=== PATIENT | male | born 1985 | race Caucasian/White ===

== ENCOUNTER 2017-05-15 15:59 | Inpatient (IN) | payer OTHER ==
[2017-05-15 17:32] VITALS: BMI 22.1
--- NOTE | 2017-05-15 21:47 | HP ---
CIWA Score - CIWA Score Nausea/Vomitin-No Nausea/No Vomiting Muscle Tremors: 4-Moderate,w/Arms Extend Anxiety: 4-Mod. Anxious/Guarded Agitation: 4-Moderately Restless Paroxysmal Sweats: 1-Minimal Palms Moist Orientation: 1-Uncertain about Date Tacttile Disturbances: 3-Moderate Itch/Numb/Burn Auditory Disturbances: 0-None Visual Disturbances: 0-None Headache: 4-Moderately Severe CIWA-Ar Total Score: 21 Admission ROS S - HPI Chief Complaint: C/O OF WITHDRAWAL SX'S. SEEKING DETOX TXMENT Allergies/Adverse Reactions: Allergies Allergy/AdvReac Type Severity Reaction Status Date / Time Fish Containing Products Allergy Severe Difficulty Verified 05/15/17 20:18 Breathing No Known Drug Allergies Allergy Verified 11/05/15 17:31 History of Present Illness: 31 Y.O. MALE WITH POLYSUBSTANCE ABUSE SEEKING ADMISSION FOR BENZO AND ALCOHOL DEPENDENCE. HE IS ALSO ON MMTP FROM [facility]. LDM TODAY METHADONE 90 MG VERIFIED BY WEDNESDAY TAKE HOME BOTTLE. SELF REFERRED. REPORTS LONGEST CLEAN TIME 2 YEARS. RELAPSING 3 YEARS AGO. Exam Limitations: No Limitations - Ebola screening Have you traveled outside of the country in the last 21 days: No (N) Have you had contact with anyone from an Ebola affected area: No Have you been sick,other than usual withdrawal symptoms: No Do you have a fever: No - Review of Systems Constitutional: Chills, Loss of Appetite, Night Sweats, Changes in sleep EENT: reports: No Symptoms Reported Respiratory: reports: No Symptoms reported Cardiac: reports: No Symptoms Reported GI: reports: Nausea, Poor Appetite, Poor Fluid Intake : reports: No Symptoms Reported Musculoskeletal: reports: No Symptoms Reported Integumentary: reports: No Symptoms Reported Neuro: reports: Seizure (DUE TO XANAX WITHDRAWAL 6 MONTHS AGO LAST EPISODE) Endocrine: reports: No Symptoms Reported Hematology: reports: No Symptoms Reported Psychiatric: reports: Anxious, Depressed Other Systems: Reviewed and Negative Patient History - Patient Medical History Hx Anemia: No Hx Asthma: Yes (As a child) Hx Chronic Obstructive Pulmonary Disease (COPD): No Hx Cancer: No Hx Cardiac Disorders: No Hx Congestive Heart Failure: No Hx Hypertension: No Hx Hypercholesterolemia: No Hx Pacemaker: No HX Cerebrovascular Accident: No Hx Seizures: Yes (withdrawal related seizure last episode 06/2015) Hx Dementia: No Hx Diabetes: No Hx Gastrointestinal Disorders: Yes (gerd) Hx Liver Disease: No Hx Genitourinary Disorders: No Hx Sexually Transmitted Disorders: No Hx Renal Disease (ESRD): No Hx Thyroid Disease: No Hx Human Immunodeficiency Virus (HIV): No Hx Hepatitis C: No Hx Depression: Yes (anxiety) Hx Suicide Attempt: No Hx Bipolar Disorder: No Hx Schizophrenia: No Other Medical History: DENIES - Patient Surgical History Past Surgical History: No Hx Neurologic Surgery: No Hx Cataract Extraction: No Hx Cardiac Surgery: No Hx Lung Surgery: No Hx Breast Surgery: No Hx Breast Biopsy: No Hx Abdominal Surgery: No Hx Appendectomy: No Hx Cholecystectomy: No Hx Genitourinary Surgery: No Hx Section: No Hx Orthopedic Surgery: No Anesthesia Reaction: No - PPD History Previous Implant?: Yes Documented Results: Negative w/o proof Implanted On Prior R Admission?: No Date: 11/07/15 PPD to be Administered?: Yes - Smoking Cessation Smoking history: Current every day smoker Have you smoked in the past 12 months: Yes Aproximately how many cigarettes per day: 20 Cigars Per Day: 0 Hx Chewing Tobacco Use: No Initiated information on smoking cessation: Yes 'Breaking Loose' booklet given: 05/15/17 - Substance & Tx. History Hx Alcohol Use: Yes Hx Substance Use: Yes Substance Use Type: Alcohol, Cocaine, Prescribed (METHADONE), Tranquilizers - Substances Abused Alprazolam (Xanax) Route: Oral Frequency: Daily Amount used: 2/15 PILLS Age of first use: 28 Date of Last Use: 05/15/17 Alcohol Route: Oral Frequency: Daily Amount used: 324OZ ALCOHOL Age of first use: 26 Date of Last Use: 05/15/17 Cocaine Route: Injection Frequency: Daily Amount used: $100 Age of first use: 30 Date of Last Use: 05/14/17 Marijuana/Hashish Route: Smoking Frequency: 1-3 times last 30 days Amount used: 3BLUNTS Age of first use: 12 Date of Last Use: 04/29/17 Family Disease History - Family Disease History Family History: Denies Admission Physical Exam BHS - Vital Signs Vital Signs: Vital Signs - 24 hr 05/15/17 17:29 Temperature 98.3 F Pulse Rate 77 Respiratory 18 Rate Blood Pressure 103/68 - Physical General Appearance: Yes: Appropriately Dressed, Mild Distress, Tremorous, Anxious HEENTM: Yes: EOMI, Normocephalic, BRITTNY, Pharynx Normal Respiratory: Yes: Chest Non-Tender, Lungs Clear, Normal Breath Sounds, No Respiratory Distress, No Accessory Muscle Use Neck: Yes: No masses,lesions,Nodules, Supple, Trachea in good position Breast: Yes: Breast Exam Deferred Cardiology: Yes: Regular Rhythm, Regular Rate, S1, S2 Abdominal: Yes: Normal Bowel Sounds, Non Tender, Flat, Soft Genitourinary: Yes: Within Normal Limits Back: Yes: Normal Inspection Musculoskeletal: Yes: full range of Motion, Gait Steady Extremities: Yes: Normal Capillary Refill, Normal Range of Motion, Non-Tender, Tremors Neurological: Yes: web site designer II-XII NML intact, Fully Oriented, Alert, Motor Strength 5/5 Integumentary: Yes: Track Abbott (RIGHT NECK) Lymphatic: Yes: Within Normal Limits - Diagnostic (1) Sedative, hypnotic or anxiolytic dependence with withdrawal, uncomplicated Current Visit: Yes Status: Chronic (2) Cannabis dependence, uncomplicated Current Visit: Yes Status: Chronic (3) Cocaine dependence, uncomplicated Current Visit: Yes Status: Chronic (4) Methadone maintenance therapy patient Current Visit: Yes Status: Chronic (5) Asthma Current Visit: Yes Status: Chronic Qualifiers: Asthma severity: mild Asthma persistence: intermittent Asthma complication type: unspecified Qualified Code(s): J45.20 - Mild intermittent asthma, uncomplicated (6) Seizure Current Visit: Yes Status: Chronic (7) 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 Current Visit: Yes Status: Chronic (8) Alcohol dependence with withdrawal Current Visit: No Status: Chronic Qualifiers: Complication of substance-induced condition: uncomplicated Qualified Code(s ): F10.230 - Alcohol dependence with withdrawal, uncomplicated (9) GERD (gastroesophageal reflux disease) Current Visit: No Status: Chronic Qualifiers: Esophagitis presence: without esophagitis Qualified Code(s): K21.9 - Gastro -esophageal reflux disease without esophagitis Cleared for Admission S - Detox or Rehab [facility] Level of Care: Medically Managed Detox Regimen/Protocol: Valium Claeared for Rehab Admission: No S Breath Alcohol Content Breath Alcohol Content: 0 Urine Drug Screen - Results Drug Screen Negative: No Urine Drug Screen Results: THC-Marijuana, GREGG-Cocaine, BZO-Benzodiazepines, MTD- Methadone, TCA-Tricyclic Antidepress
[2017-05-15] MEDS ORDERED: MENTHOL/PHENOL 1 EACH UD MM PRN (22:04)
[2017-05-15] MEDS ORDERED: diazePAM 5 MG TABLET PO ONE (22:04)
[2017-05-15] MEDS ORDERED: P-EPHED 60MG/TRIPROLIDI 2.5MG TABLET PO PRN (22:04)
[2017-05-15] MEDS ORDERED: MAGNESIUM CITRATE 300 ML BOTTLE PO PRN (22:04)
[2017-05-15] MEDS ORDERED: MAG HYDROX/AL HYDROX/SIMETH 30 ML UNIT-DOSE CUP PO PRN (22:04)
[2017-05-15] MEDS ORDERED: guaiFENesin/D-METHORPHAN HB 10 ML UNIT-DOSE CUPS PO PRN (22:04)
[2017-05-15] MEDS ORDERED: MAGNESIUM HYDROX 2400MG/30ML ORAL SUSPENSION 30 ML CUP PO PRN (22:04)
[2017-05-15] MEDS ORDERED: LOPERAMIDE HCL 2 MG CAPSULE PO PRN (22:04)
[2017-05-15] MEDS ORDERED: NICOTINE POLACRILEX 4 MG GUM BC PRN (22:04)
[2017-05-15] MEDS ORDERED: IBUPROFEN 400 MG TABLET (FP) PO PRN (22:04)
[2017-05-15] MEDS ORDERED: ACETAMINOPHEN 325 MG TABLET (FP) PO PRN (22:04)
[2017-05-15] MEDS ORDERED: ALBUTEROL SO4 2.5/IPRATROPIUM 0.5 INH SOL 3 ML VIAL.NEB. NEB PRN (22:56)
[2017-05-15] MEDS: diazePAM 5 MG TABLET PO SCH (23:39)
[2017-05-16 00:12] LABS: URINE APPEARANCE CLEAR; URINE BILIRUBIN NEGATIVE (NEGATIVE); URINE BLOOD NEGATIVE (NEGATIVE); URINE COLOR DKYELLOW; URINE GLUCOSE (UA) NEGATIVE (NEGATIVE); URINE KETONE NEGATIVE (NEGATIVE); URINE LEUK ESTERASE NEGATIVE (NEGATIVE); URINE NITRITE NEGATIVE (NEGATIVE); URINE PROTEIN NEGATIVE (NEGATIVE)
[2017-05-16] MEDS ORDERED: DOCUSATE SODIUM 100 MG CAPSULE (FP) PO ONE (01:30)
[2017-05-16] MEDS: hydrOXYzine PAMOATE 50 MG CAPSULE (FP) PO PRN (02:29)
[2017-05-16] MEDS ORDERED: METHADONE HCL 10 MG TABLET ONE (04:46)
[2017-05-16] MEDS ORDERED: METHADONE HCL 40 MG DISPERSABLE TABLET ONE (04:47)
[2017-05-16] MEDS ORDERED: METHADONE HCL 10 MG TABLET PO SCH (06:00)
[2017-05-16] MEDS: diazePAM 5 MG TABLET PO SCH ×3 (06:56→22:28)
[2017-05-16] MEDS: METHADONE 80 MG, METHADONE 10 MG PO SCH (06:56)
[2017-05-16 11:00] LABS: HEMATOCRIT 36.1 % (35.4-49); HEMOGLOBIN 11.7 GM/dL (11.7-16.9); MCH 28.8 pg (25.7-33.7); MCHC 32.5 g/dl (32.0-35.9); MEAN CELL VOLUME 88.6 fl (80-96); MEAN PLT VOLUME 8.9 fl (7.5-11.1); PLATELET COUNT 239 K/MM3 (134-434); RBC 4.08 M/mm3 (4.00-5.60); RDW 13.7 % (11.9-15.9); WHITE BLOOD COUNT 6.4 K/mm3 (4.0-10.0)
[2017-05-16 11:08] LABS: ALBUMIN 3.8 g/dl (3.4-5.0); ANION GAP 4 (8-16); BLOOD UREA NITROGEN 18 mg/dL (7-18); CHLORIDE 103 mmol/L (98-107); CO2 34 mmol/L (21-32); GLUCOSE,RANDOM 78 mg/dL (74-106); POTASSIUM 3.6 mmol/L (3.5-5.1); SGOT/AST 52 U/L (15-37); SGPT/ALT 65 U/L (12-78); SODIUM 141 mmol/L (136-145)
[2017-05-16 11:10] LABS: ALK PHOS 123 U/L (45-117); BILIRUBIN,TOTAL 0.6 mg/dL (0.2-1.0); TOT PROT 6.7 g/dl (6.4-8.2)
--- NOTE | 2017-05-16 11:13 | EKG ---
Test Reason : Blood Pressure : / mmHG Vent. Rate : 080 BPM Atrial Rate : 080 BPM P-R Int : 150 ms QRS Dur : 082 ms QT Int : 360 ms P-R-T Axes : 050 044 037 degrees QTc Int : 415 ms NORMAL SINUS RHYTHM NONSPECIFIC T WAVE ABNORMALITY ABNORMAL ECG NO PREVIOUS ECGS AVAILABLE Confirmed by DARNELL BERNARD MD ([id number]) on 05/16/2017 11:13:29 AM Referred By: Confirmed By:DARNELL BERNARD MD
[2017-05-16] MEDS: diazePAM 5 MG TABLET PO PRN (11:15)
[2017-05-16] MEDS: PRENATAL VITAMINS W/ FOLIC ACID TABLET (FP) PO SCH (11:15)
[2017-05-16] MEDS: NICOTINE 21 MG/24 HOURS TOPICAL PATCH TD SCH (11:16)
--- NOTE | 2017-05-16 12:13 | PN ---
S CIWA - CIWA Score Nausea/Vomitin Muscle Tremors: 3 Anxiety: 3 Agitation: 2 Paroxysmal Sweats: 1-Minimal Palms Moist Orientation: 0-Oriented Tacttile Disturbances: 1-Very Mild Itch/Numbness Auditory Disturbances: 1-Very Mild Visual Disturbances: 0-None Headache: 2-Mild CIWA-Ar Total Score: 16 BHS Progress Note (SOAP) Subjective: ALERT,IRRITABLE,ANXIOUS,INTERRUPTED SLEEP,TREMOR,PAIN IN THE BODY Objective: 05/16/17 12:11 Vital Signs Temperature 97.1 F L 05/16/17 09:06 Pulse Rate 59 L 05/16/17 09:06 Respiratory Rate 18 05/16/17 09:06 Blood Pressure 101/68 05/16/17 09:06 O2 Sat by Pulse Oximetry (%) EKG NSR,NON SPECIFIC T WAVE NO CHEST PAIN,NO SOB,NO DIZZINESS Laboratory Last Values WBC 6.4 K/mm3 (4.0-10.0) 05/16/17 08:00 RBC 4.08 M/mm3 (4.00-5.60) 05/16/17 08:00 Hgb 11.7 GM/dL (11.7-16.9) 05/16/17 08:00 Hct 36.1 % (35.4-49) 05/16/17 08:00 MCV 88.6 fl (80-96) 05/16/17 08:00 MCH 28.8 pg (25.7-33.7) 05/16/17 08:00 MCHC 32.5 g/dl (32.0-35.9) 05/16/17 08:00 RDW 13.7 % (11.9-15.9) 05/16/17 08:00 Plt Count 239 K/MM3 (134-434) D 05/16/17 08:00 MPV 8.9 fl (7.5-11.1) 05/16/17 08:00 Sodium 141 mmol/L (136-145) 05/16/17 08:00 Potassium 3.6 mmol/L (3.5-5.1) 05/16/17 08:00 Chloride 103 mmol/L (98-107) 05/16/17 08:00 Carbon Dioxide 34 mmol/L (21-32) H D 05/16/17 08:00 Anion Gap 4 (8-16) L 05/16/17 08:00 BUN 18 mg/dL (7-18) 05/16/17 08:00 Creatinine 1.0 mg/dL (0.7-1.3) 05/16/17 08:00 Creat Clearance w eGFR > 60 (>60) 05/16/17 08:00 Random Glucose 78 mg/dL (74-106) 05/16/17 08:00 Calcium 8.0 mg/dL (8.5-10.1) L 05/16/17 08:00 Total Bilirubin 0.6 mg/dL (0.2-1.0) 05/16/17 08:00 AST 52 U/L (15-37) H D 05/16/17 08:00 ALT 65 U/L (12-78) D 05/16/17 08:00 Alkaline Phosphatase 123 U/L (45-117) H 05/16/17 08:00 Total Protein 6.7 g/dl (6.4-8.2) 05/16/17 08:00 Albumin 3.8 g/dl (3.4-5.0) 05/16/17 08:00 Urine Color Dkyellow 05/15/17 00:00 Urine Appearance Clear 05/15/17 00:00 Urine pH 5.0 (5.0-8.0) 05/15/17 00:00 Ur Specific [place] 1.026 (1.001-1.035) 05/15/17 00:00 Urine Protein Negative (NEGATIVE) 05/15/17 00:00 Urine Glucose (UA) Negative (NEGATIVE) 05/15/17 00:00 Urine Ketones Negative (NEGATIVE) 05/15/17 00:00 Urine Blood Negative (NEGATIVE) 05/15/17 00:00 Urine Nitrite Negative (NEGATIVE) 05/15/17 00:00 Urine Bilirubin Negative (NEGATIVE) 05/15/17 00:00 Urine Urobilinogen 2.0 mg/dL (0.2-1.0) 05/15/17 00:00 Ur Leukocyte Esterase Negative (NEGATIVE) 05/15/17 00:00 05/16/17 12:12 LABS PENDING Assessment: 05/16/17 12:13 WITHDRAWAL SYMPTOM Plan: CONTINUE DETOX
--- NOTE | 2017-05-16 13:18 | PN ---
[facility] Progress Note Note: Patient found sleeping in bed. Requested to be seen tomorrow citing being tired and needing to sleep. When asked to make an effort to see speech writer now so medications he needed could be ordered today, he said that he is fine
[2017-05-16] MEDS: THIAMINE HCL 100 MG TABLET (FP) PO SCH (22:28)
[2017-05-16] MEDS: DOCUSATE SODIUM 100 MG CAPSULE (FP) PO SCH (22:28)
[2017-05-17] MEDS ORDERED: METHADONE HCL 10 MG TABLET ONE (04:45)
[2017-05-17] MEDS ORDERED: METHADONE HCL 40 MG DISPERSABLE TABLET ONE (04:46)
[2017-05-17] MEDS: METHADONE 80 MG, METHADONE 10 MG PO SCH (05:03)
[2017-05-17] MEDS: diazePAM 5 MG TABLET PO PRN (08:23)
[2017-05-17] MEDS: NICOTINE 21 MG/24 HOURS TOPICAL PATCH TD SCH (10:39)
[2017-05-17] MEDS: PRENATAL VITAMINS W/ FOLIC ACID TABLET (FP) PO SCH (10:40)
[2017-05-17] MEDS: diazePAM 5 MG TABLET PO SCH ×2 (10:41→22:52)
--- NOTE | 2017-05-17 14:19 | PN ---
S CIWA - CIWA Score Nausea/Vomitin Muscle Tremors: 3 Anxiety: 4-Mod. Anxious/Guarded Agitation: 3 Paroxysmal Sweats: 3 Orientation: 2-Disoriented Date<2 days Tacttile Disturbances: 0-None Auditory Disturbances: 0-None Visual Disturbances: 0-None Headache: 0-None Present CIWA-Ar Total Score: 18 BHS Progress Note (SOAP) Subjective: Nausea, Anxious, Fatigue, Stomach Cramping, Sweating. Objective: PT. A & O X 2 (UNCERTAIN ABOUT CURRENT DAY /DATE). PT. OBSERVED AMBULATING ON UNIT. NO ACUTE DISTRESS. 05/17/17 14:16 Vital Signs Temperature 97.1 F L 05/17/17 06:00 Pulse Rate 96 H 05/17/17 06:00 Respiratory Rate 18 05/17/17 06:00 Blood Pressure 102/68 05/17/17 06:00 O2 Sat by Pulse Oximetry (%) Laboratory Tests 05/15/17 05/16/17 05/16/17 00:00 08:00 08:00 WBC 6.4 RBC 4.08 Hgb 11.7 Hct 36.1 MCV 88.6 MCH 28.8 MCHC 32.5 RDW 13.7 Plt Count 239 D MPV 8.9 Sodium Potassium Chloride Carbon Dioxide Anion Gap BUN Creatinine Creat Clearance w eGFR Random Glucose Calcium Total Bilirubin AST ALT Alkaline Phosphatase Total Protein Albumin Urine Color Dkyellow Urine Appearance Clear Urine pH 5.0 Ur Specific [place] 1.026 Urine Protein Negative Urine Glucose (UA) Negative Urine Ketones Negative Urine Blood Negative Urine Nitrite Negative Urine Bilirubin Negative Urine Urobilinogen 2.0 Ur Leukocyte Esterase Negative RPR Titer Hepatitis C Antibody >11.0 H 05/16/17 05/16/17 08:00 08:00 WBC RBC Hgb Hct MCV MCH MCHC RDW Plt Count MPV Sodium 141 Potassium 3.6 Chloride 103 Carbon Dioxide 34 H D Anion Gap 4 L BUN 18 Creatinine 1.0 Creat Clearance w eGFR > 60 Random Glucose 78 Calcium 8.0 L Total Bilirubin 0.6 AST 52 H D ALT 65 D Alkaline Phosphatase 123 H Total Protein 6.7 Albumin 3.8 Urine Color Urine Appearance Urine pH Ur Specific [place] Urine Protein Urine Glucose (UA) Urine Ketones Urine Blood Urine Nitrite Urine Bilirubin Urine Urobilinogen Ur Leukocyte Esterase RPR Titer Nonreactive Hepatitis C Antibody LABS NOTED. Assessment: 05/17/17 14:17 WITHDRAWAL SYMPTOMS. Plan: CONTINUE DETOX. INCREASE DAILY PO FLUID INTAKE. PATIENT UNWILLING TO GET OUT OF BED TO TO GO PRIVATE TO BE INFORMED ABOUT POSITIVE HCV AB RESULT. WILL INFORM HIM TOMORROW DURING AM ROUNDS.
[2017-05-17] MEDS: hydrOXYzine PAMOATE 50 MG CAPSULE (FP) PO PRN (14:34)
[2017-05-17] MEDS: THIAMINE HCL 100 MG TABLET (FP) PO SCH (22:51)
[2017-05-17] MEDS: DOCUSATE SODIUM 100 MG CAPSULE (FP) PO SCH (22:52)
[2017-05-18] MEDS ORDERED: METHADONE HCL 10 MG TABLET ONE (03:59)
[2017-05-18] MEDS ORDERED: METHADONE HCL 40 MG DISPERSABLE TABLET ONE (04:00)
[2017-05-18] MEDS: diazePAM 5 MG TABLET PO PRN (05:23)
[2017-05-18] MEDS: METHADONE 80 MG, METHADONE 10 MG PO SCH (05:23)
[2017-05-18] MEDS: NICOTINE 21 MG/24 HOURS TOPICAL PATCH TD SCH (09:20)
[2017-05-18] MEDS: PRENATAL VITAMINS W/ FOLIC ACID TABLET (FP) PO SCH (09:20)
[2017-05-18] MEDS: diazePAM 5 MG TABLET PO SCH ×2 (09:20→22:04)
--- NOTE | 2017-05-18 10:52 | PN ---
BHS Progress Note (SOAP) Subjective: Diarrhea, Hot / Cold Sensations, Sweating, H/A, Fatigue, Interrupted sleep, Nausea, Anxious. Objective: PT. A & O X 3. NO ACUTE DISTRESS. 05/18/17 10:51 Vital Signs Temperature 98.0 F 05/18/17 09:19 Pulse Rate 62 05/18/17 09:19 Respiratory Rate 18 05/18/17 09:19 Blood Pressure 105/56 05/18/17 09:19 O2 Sat by Pulse Oximetry (%) Laboratory Tests 05/15/17 05/16/17 05/16/17 00:00 08:00 08:00 WBC 6.4 RBC 4.08 Hgb 11.7 Hct 36.1 MCV 88.6 MCH 28.8 MCHC 32.5 RDW 13.7 Plt Count 239 D MPV 8.9 Sodium Potassium Chloride Carbon Dioxide Anion Gap BUN Creatinine Creat Clearance w eGFR Random Glucose Calcium Total Bilirubin AST ALT Alkaline Phosphatase Total Protein Albumin Urine Color Dkyellow Urine Appearance Clear Urine pH 5.0 Ur Specific [place] 1.026 Urine Protein Negative Urine Glucose (UA) Negative Urine Ketones Negative Urine Blood Negative Urine Nitrite Negative Urine Bilirubin Negative Urine Urobilinogen 2.0 Ur Leukocyte Esterase Negative RPR Titer Hepatitis C Antibody >11.0 H 05/16/17 05/16/17 08:00 08:00 WBC RBC Hgb Hct MCV MCH MCHC RDW Plt Count MPV Sodium 141 Potassium 3.6 Chloride 103 Carbon Dioxide 34 H D Anion Gap 4 L BUN 18 Creatinine 1.0 Creat Clearance w eGFR > 60 Random Glucose 78 Calcium 8.0 L Total Bilirubin 0.6 AST 52 H D ALT 65 D Alkaline Phosphatase 123 H Total Protein 6.7 Albumin 3.8 Urine Color Urine Appearance Urine pH Ur Specific [place] Urine Protein Urine Glucose (UA) Urine Ketones Urine Blood Urine Nitrite Urine Bilirubin Urine Urobilinogen Ur Leukocyte Esterase RPR Titer Nonreactive Hepatitis C Antibody LABS NOTED. Assessment: 05/18/17 10:51 WITHDRAWAL SYMPTOMS. Plan: CONTINUE DETOX. INCREASE DAILY PO FLUID INTAKE.
[2017-05-18] MEDS: THIAMINE HCL 100 MG TABLET (FP) PO SCH (22:04)
[2017-05-18] MEDS: DOCUSATE SODIUM 100 MG CAPSULE (FP) PO SCH (22:04)
[2017-05-18] MEDS: hydrOXYzine PAMOATE 50 MG CAPSULE (FP) PO PRN (22:05)
[2017-05-19] MEDS ORDERED: METHADONE HCL 40 MG DISPERSABLE TABLET ONE (04:19)
[2017-05-19] MEDS ORDERED: METHADONE HCL 10 MG TABLET ONE (04:19)
[2017-05-19] MEDS: METHADONE 80 MG, METHADONE 10 MG PO SCH (05:00)
[2017-05-19 09:17] VITALS: BP 99/66; PULSE 74; TEMP 96
[2017-05-19] MEDS ORDERED: diazePAM 5 MG TABLET PO SCH (10:00)
[2017-05-19] MEDS: NICOTINE 21 MG/24 HOURS TOPICAL PATCH TD SCH (10:34)
[2017-05-19] MEDS: PRENATAL VITAMINS W/ FOLIC ACID TABLET (FP) PO SCH (10:34)
--- NOTE | 2017-05-19 12:10 | DS ---
[facility] Detox Discharge Summary Admission Date: 05/15/17 - History Present History: Cannabis Dependence, Cocaine Dependence, Opioid Dependence, Sedative Dependence, MMTP Additional Comments: PATIENT GOING TO [facility] (Kim [facility] LEON). FOR AFTERCARE. PATIENT WAS DISCHARGED FROM DETOX UNIT IN STABLE MEDICAL CONDITION. Pertinent Past History: History of Asthma (during childhood), Anxiety, Depression, Nicotine dependence, History of seizures (due to withdrawal), GERD, MMTP. - Physical Exam Results Vital Signs: Vital Signs Temperature 96 F L 05/19/17 09:17 Pulse Rate 74 05/19/17 09:17 Respiratory Rate 20 05/19/17 09:17 Blood Pressure 99/66 05/19/17 09:17 O2 Sat by Pulse Oximetry (%) Pertinent Admission Physical Exam Findings: WITHDRAWAL SYMPTOMS. Laboratory Tests 05/15/17 05/16/17 05/16/17 00:00 08:00 08:00 WBC 6.4 RBC 4.08 Hgb 11.7 Hct 36.1 MCV 88.6 MCH 28.8 MCHC 32.5 RDW 13.7 Plt Count 239 D MPV 8.9 Sodium Potassium Chloride Carbon Dioxide Anion Gap BUN Creatinine Creat Clearance w eGFR Random Glucose Calcium Total Bilirubin AST ALT Alkaline Phosphatase Total Protein Albumin Urine Color Dkyellow Urine Appearance Clear Urine pH 5.0 Ur Specific [place] 1.026 Urine Protein Negative Urine Glucose (UA) Negative Urine Ketones Negative Urine Blood Negative Urine Nitrite Negative Urine Bilirubin Negative Urine Urobilinogen 2.0 Ur Leukocyte Esterase Negative RPR Titer Hepatitis C Antibody >11.0 H 05/16/17 05/16/17 08:00 08:00 WBC RBC Hgb Hct MCV MCH MCHC RDW Plt Count MPV Sodium 141 Potassium 3.6 Chloride 103 Carbon Dioxide 34 H D Anion Gap 4 L BUN 18 Creatinine 1.0 Creat Clearance w eGFR > 60 Random Glucose 78 Calcium 8.0 L Total Bilirubin 0.6 AST 52 H D ALT 65 D Alkaline Phosphatase 123 H Total Protein 6.7 Albumin 3.8 Urine Color Urine Appearance Urine pH Ur Specific [place] Urine Protein Urine Glucose (UA) Urine Ketones Urine Blood Urine Nitrite Urine Bilirubin Urine Urobilinogen Ur Leukocyte Esterase RPR Titer Nonreactive Hepatitis C Antibody LABS NOTED. - Treatment Hospital Course: Detox Protocol Followed, Detoxed Safely, Responded well, Discharged Condition Good, Rehab Referral Accepted Patient has Accepted a Rehab Referral to: [facility] (H[facility] N.Rebecca.) . - Medication Discharge Medications: Ambulatory Orders Mirtazapine [Remeron -] 30 mg PO HS 05/15/17 Sertraline HCl [Zoloft] 25 mg PO DAILY 05/15/17 - Diagnosis (1) Asthma Status: Chronic Qualifiers: Asthma severity: mild Asthma persistence: intermittent Asthma complication type: unspecified Qualified Code(s): J45.20 - Mild intermittent asthma, uncomplicated (2) Cannabis dependence, uncomplicated Status: Chronic (3) Cocaine dependence, uncomplicated Status: Chronic (4) Methadone maintenance therapy patient Status: Chronic (5) Sedative, hypnotic or anxiolytic dependence with withdrawal, uncomplicated Status: Acute (6) 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
== END 2017-05-19 10:51 | disposition other institution (70) | DRG 773 ==
LOC: YASAS 15:59 → Y3N 19:46
PROVIDERS: ADMIT Internal Medicine; ATTEND Internal Medicine
PROC: HZ2ZZZZ Detoxification Services for Substance Abuse Treatment (ICD-10-PCS; principal; 2017-05-15)
DX: F11.20 Opioid dependence, uncomplicated (principal); F13.230 Sedative, hypnotic or anxiolytic dependence with withdrawal, uncomplicated; F10.230 Alcohol dependence with withdrawal, uncomplicated; F14.20 Cocaine dependence, uncomplicated; F12.20 Cannabis dependence, uncomplicated; G40.509 Epileptic seizures related to external causes, not intractable, without status epilepticus; F41.9 Anxiety disorder, unspecified; J45.20 Mild intermittent asthma, uncomplicated; K21.9 Gastro-esophageal reflux disease without esophagitis
CPT/HCPCS: 36415; 80053; 81003; 85027; 86593; 86803; 93005; 93010

== ENCOUNTER 2017-05-19 11:16 | Inpatient (IN) | payer OTHER ==
[2017-05-19 11:45] VITALS: BMI 20.3
[2017-05-19] MEDS ORDERED: IBUPROFEN 400 MG TABLET (FP) PO PRN (12:19)
[2017-05-19] MEDS ORDERED: LOPERAMIDE HCL 2 MG CAPSULE PO PRN (12:19)
[2017-05-19] MEDS ORDERED: MAG HYDROX/AL HYDROX/SIMETH 30 ML UNIT-DOSE CUP PO PRN (12:19)
[2017-05-19] MEDS ORDERED: MAGNESIUM CITRATE 300 ML BOTTLE PO PRN (12:19)
[2017-05-19] MEDS ORDERED: MAGNESIUM HYDROX 2400MG/30ML ORAL SUSPENSION 30 ML CUP PO PRN (12:19)
[2017-05-19] MEDS ORDERED: MENTHOL/PHENOL 1 EACH UD MM PRN (12:19)
[2017-05-19] MEDS ORDERED: P-EPHED 60MG/TRIPROLIDI 2.5MG TABLET PO PRN (12:19)
[2017-05-19] MEDS ORDERED: guaiFENesin/D-METHORPHAN HB 10 ML UNIT-DOSE CUPS PO PRN (12:19)
[2017-05-19] MEDS ORDERED: ACETAMINOPHEN 325 MG TABLET (FP) PO PRN (12:19)
--- NOTE | 2017-05-19 12:19 | HP ---
[facility] Re[facility] Assess/Revision - Admission History Admitted to Rehab from: [facility] Date of Admission to Rehab: 05/19/17 - Vital signs Vital Signs: Vital Signs Period Temp Pulse Resp BP Sys/Meredith Pulse Ox Last 24 Hr 79 F 79 18 111/69 - Findings Detox History & Physical reviewed: Yes Concur with findings: Yes Comments/Additional Findings: FOR REHAB PROTOCOL Inpatient Rehab Admission - Initial Determination Are CD services needed?: Yes Free of communicable disease: Yes Not in need of hospitalization: Yes - Rehab Admission Criteria Previous failed treatment: Yes Poor recovery environment: Yes Comorbidities: Yes Lacks judgement: No Patient is meeting Inpatient Rehab admission criteria:: Yes
[2017-05-19] MEDS ORDERED: ALBUTEROL SO4 18 GM HFA INHALER IH PRN (12:21)
--- NOTE | 2017-05-19 15:54 | HP ---
Psychiatrist Admission - Data Date of interview: 05/19/17 Admission source: [address] [place] [address] Identifying data: This is the first admission to [address] [place] [address] for this 31 years old father of 3 yo son,resides with (who is on treatment now as well) ,unemployed,supported by PA. Medical History: GERD,BA. Psychiatric History: Patient reports some anxiety,irritability,episodes of insomnia mostly related to drug use.No suicidal attempts,no psychiatric admissions reported.Patient sees psychiatrist on and off for Remeron 30 mg po hs. Physical/Sexual Abuse/Trauma History: denies Vital Signs: Vital Signs - 24 hr 05/19/17 11:31 Temperature 79 F L Pulse Rate 79 Respiratory 18 Rate Blood Pressure 111/69 Allergies/Adverse Reactions: Allergies Allergy/AdvReac Type Severity Reaction Status Date / Time Fish Containing Products Allergy Severe Difficulty Verified 05/19/17 11:24 Breathing No Known Drug Allergies Allergy Verified 05/19/17 11:24 Date of last physical exam: 05/19/17 Concur with the findings of this exam: Yes - Substance Abuse/Tx History Hx Alcohol Use: Yes (drinking since 12 yo,hard liquors,beer) Hx Substance Use: Yes (heroin and cocaine since late ,Xanax 3 years ago -10- 15 mg daily) Substance Use Type: Alcohol, Cocaine, Heroin, Tranquilizers Hx Substance Use Treatment: Yes (completed inpatient rehab in [facility] in 2016 ) Mental Status Exam - Mental Status Exam Alert and Oriented to: Time, Place, Person Cognitive Function: Grossly Intact Patient Appearance: Unkempt Mood: Angry, Sad, Anxious, Irritable Affect: Mood Congruent, Labile Patient Behavior: Cooperative Speech Pattern: Clear Voice Loudness: Normal Thought Process: Goal Oriented Thought Disorder: Not Present Hallucinations: Denies Suicidal Ideation: Denies Homicidal Ideation: Denies Insight/Judgement: Fair Sleep: Fair Appetite: Fair Muscle strength/Tone: Normal Gait/Station: Normal Psychiatric Findings - Problem List ([place] 1, 2,3) (1) Benzodiazepine dependence Current Visit: Yes Status: Chronic (2) Drug-induced mood disorder Current Visit: Yes Status: Chronic (3) Opiate dependence Current Visit: Yes Status: Chronic (4) Alcohol dependence Current Visit: Yes Status: Chronic (5) GERD (gastroesophageal reflux disease) Current Visit: Yes Status: Chronic Qualifiers: (6) 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 Will monitor progress.
[2017-05-19] MEDS: THIAMINE HCL 100 MG TABLET (FP) PO SCH (21:11)
[2017-05-19] MEDS: MIRTAZAPINE 30 MG TABLET (FP) PO SCH (21:11)
[2017-05-20] MEDS ORDERED: METHADONE HCL 40 MG DISPERSABLE TABLET ONE (04:01)
[2017-05-20] MEDS ORDERED: METHADONE HCL 10 MG TABLET ONE (04:01)
[2017-05-20] MEDS ORDERED: METHADONE HCL 10 MG TABLET PO SCH (06:00)
[2017-05-20] MEDS: METHADONE 80 MG, METHADONE 10 MG PO SCH (06:14)
[2017-05-20] MEDS: PRENATAL VITAMINS W/ FOLIC ACID TABLET (FP) PO SCH (10:35)
[2017-05-20] MEDS ORDERED: COLLOIDAL OATMEAL 1 BAR EACH TP PRN (13:34)
[2017-05-20] MEDS: CLOTRIMAZOLE/BETAMET DIPROP 15 GM TUBE TP SCH ×2 (14:31→21:48)
[2017-05-20] MEDS: THIAMINE HCL 100 MG TABLET (FP) PO SCH (21:48)
[2017-05-20] MEDS: MIRTAZAPINE 30 MG TABLET (FP) PO SCH (21:48)
[2017-05-21] MEDS ORDERED: METHADONE HCL 10 MG TABLET ONE (04:21)
[2017-05-21] MEDS ORDERED: METHADONE HCL 40 MG DISPERSABLE TABLET ONE (04:21)
[2017-05-21] MEDS: METHADONE 80 MG, METHADONE 10 MG PO SCH (06:32)
[2017-05-21] MEDS: CLOTRIMAZOLE/BETAMET DIPROP 15 GM TUBE TP SCH ×2 (10:32→21:45)
[2017-05-21] MEDS: PRENATAL VITAMINS W/ FOLIC ACID TABLET (FP) PO SCH (10:32)
[2017-05-21] MEDS: hydrOXYzine PAMOATE 50 MG CAPSULE (FP) PO PRN ×3 (11:07→21:45)
[2017-05-21] MEDS: MIRTAZAPINE 30 MG TABLET (FP) PO SCH (21:45)
[2017-05-21] MEDS: THIAMINE HCL 100 MG TABLET (FP) PO SCH (21:45)
[2017-05-22] MEDS ORDERED: METHADONE HCL 10 MG TABLET ONE (03:27)
[2017-05-22] MEDS ORDERED: METHADONE HCL 40 MG DISPERSABLE TABLET ONE (03:27)
[2017-05-22] MEDS: METHADONE 80 MG, METHADONE 10 MG PO SCH (06:24)
[2017-05-22] MEDS ORDERED: PT OWN MED DRAWER 7, Y5N ONE ×2 (08:19→19:38)
[2017-05-22] MEDS: PRENATAL VITAMINS W/ FOLIC ACID TABLET (FP) PO SCH (09:38)
[2017-05-22] MEDS: hydrOXYzine PAMOATE 50 MG CAPSULE (FP) PO PRN ×2 (09:38→21:29)
[2017-05-22] MEDS: CLOTRIMAZOLE/BETAMET DIPROP 15 GM TUBE TP SCH ×2 (09:38→22:08)
[2017-05-22] MEDS: THIAMINE HCL 100 MG TABLET (FP) PO SCH (21:28)
[2017-05-22] MEDS: MIRTAZAPINE 30 MG TABLET (FP) PO SCH (21:28)
[2017-05-23] MEDS ORDERED: METHADONE HCL 40 MG DISPERSABLE TABLET ONE (05:11)
[2017-05-23] MEDS ORDERED: METHADONE HCL 10 MG TABLET ONE (05:11)
[2017-05-23] MEDS: METHADONE 80 MG, METHADONE 10 MG PO SCH (06:28)
[2017-05-23] MEDS ORDERED: PT OWN MED DRAWER 7, Y5N ONE ×3 (08:16→21:14)
[2017-05-23] MEDS: PRENATAL VITAMINS W/ FOLIC ACID TABLET (FP) PO SCH (10:16)
[2017-05-23] MEDS: CLOTRIMAZOLE/BETAMET DIPROP 15 GM TUBE TP SCH ×2 (10:16→21:13)
[2017-05-23] MEDS: THIAMINE HCL 100 MG TABLET (FP) PO SCH (21:11)
[2017-05-23] MEDS: hydrOXYzine PAMOATE 50 MG CAPSULE (FP) PO PRN (21:11)
[2017-05-23] MEDS: MIRTAZAPINE 30 MG TABLET (FP) PO SCH (21:11)
[2017-05-24] MEDS ORDERED: METHADONE HCL 10 MG TABLET ONE (03:06)
[2017-05-24] MEDS ORDERED: METHADONE HCL 40 MG DISPERSABLE TABLET ONE (03:06)
[2017-05-24] MEDS: METHADONE 80 MG, METHADONE 10 MG PO SCH (06:14)
[2017-05-24] MEDS: PRENATAL VITAMINS W/ FOLIC ACID TABLET (FP) PO SCH (10:31)
[2017-05-24] MEDS: CLOTRIMAZOLE/BETAMET DIPROP 15 GM TUBE TP SCH ×2 (10:31→21:08)
[2017-05-24] MEDS: hydrOXYzine PAMOATE 50 MG CAPSULE (FP) PO PRN (21:08)
[2017-05-24] MEDS: THIAMINE HCL 100 MG TABLET (FP) PO SCH (21:08)
[2017-05-24] MEDS: MIRTAZAPINE 30 MG TABLET (FP) PO SCH (21:08)
[2017-05-25] MEDS ORDERED: METHADONE HCL 10 MG TABLET ONE (03:35)
[2017-05-25] MEDS ORDERED: METHADONE HCL 40 MG DISPERSABLE TABLET ONE (03:36)
[2017-05-25] MEDS: METHADONE 80 MG, METHADONE 10 MG PO SCH (06:24)
[2017-05-25] MEDS: hydrOXYzine PAMOATE 50 MG CAPSULE (FP) PO PRN ×2 (07:42→21:09)
[2017-05-25] MEDS: PRENATAL VITAMINS W/ FOLIC ACID TABLET (FP) PO SCH (10:34)
[2017-05-25] MEDS: CLOTRIMAZOLE/BETAMET DIPROP 15 GM TUBE TP SCH ×2 (10:34→21:10)
[2017-05-25] MEDS ORDERED: PT OWN MED DRAWER 7, Y5N ONE (19:36)
[2017-05-25] MEDS: MIRTAZAPINE 30 MG TABLET (FP) PO SCH (21:09)
[2017-05-25] MEDS: THIAMINE HCL 100 MG TABLET (FP) PO SCH (21:09)
[2017-05-26] MEDS ORDERED: METHADONE HCL 40 MG DISPERSABLE TABLET ONE (04:51)
[2017-05-26] MEDS ORDERED: METHADONE HCL 10 MG TABLET ONE (04:51)
[2017-05-26] MEDS: METHADONE 80 MG, METHADONE 10 MG PO SCH (07:22)
[2017-05-26] MEDS: PRENATAL VITAMINS W/ FOLIC ACID TABLET (FP) PO SCH (10:30)
[2017-05-26] MEDS: CLOTRIMAZOLE/BETAMET DIPROP 15 GM TUBE TP SCH ×2 (10:30→21:10)
--- NOTE | 2017-05-26 15:52 | PN ---
[facility] Progress Note Note: Patient requested Methadone maintenance dose to be increase from 90 mg to 100 mg . Patient reports difficulty sleeping and reports the remeron is helping. patient AO x3 , self directing, in no apparent distress, ambulating in the unit. Patient to follow up with his MTTP upon completion of rehab. Continue rehab.
[2017-05-26] MEDS: MIRTAZAPINE 30 MG TABLET (FP) PO SCH (21:08)
[2017-05-26] MEDS: THIAMINE HCL 100 MG TABLET (FP) PO SCH (21:08)
[2017-05-26] MEDS: hydrOXYzine PAMOATE 50 MG CAPSULE (FP) PO PRN (21:08)
[2017-05-26] MEDS ORDERED: PT OWN MED DRAWER 7, Y5N ONE (21:09)
[2017-05-27] MEDS ORDERED: METHADONE HCL 40 MG DISPERSABLE TABLET ONE (03:25)
[2017-05-27] MEDS ORDERED: METHADONE HCL 10 MG TABLET ONE (03:25)
[2017-05-27] MEDS: METHADONE 80 MG, METHADONE 10 MG PO SCH (06:20)
[2017-05-27] MEDS: CLOTRIMAZOLE/BETAMET DIPROP 15 GM TUBE TP SCH ×2 (09:57→21:19)
[2017-05-27] MEDS: PRENATAL VITAMINS W/ FOLIC ACID TABLET (FP) PO SCH (09:57)
[2017-05-27] MEDS: hydrOXYzine PAMOATE 50 MG CAPSULE (FP) PO PRN (21:19)
[2017-05-27] MEDS: THIAMINE HCL 100 MG TABLET (FP) PO SCH (21:19)
[2017-05-27] MEDS: MIRTAZAPINE 30 MG TABLET (FP) PO SCH (21:19)
[2017-05-28] MEDS ORDERED: METHADONE HCL 10 MG TABLET ONE (03:32)
[2017-05-28] MEDS ORDERED: METHADONE HCL 40 MG DISPERSABLE TABLET ONE (03:32)
[2017-05-28] MEDS: METHADONE 80 MG, METHADONE 10 MG PO SCH (06:15)
[2017-05-28] MEDS: PRENATAL VITAMINS W/ FOLIC ACID TABLET (FP) PO SCH (10:10)
[2017-05-28] MEDS: CLOTRIMAZOLE/BETAMET DIPROP 15 GM TUBE TP SCH ×2 (10:10→21:09)
[2017-05-28] MEDS: THIAMINE HCL 100 MG TABLET (FP) PO SCH (21:09)
[2017-05-28] MEDS: hydrOXYzine PAMOATE 50 MG CAPSULE (FP) PO PRN (21:09)
[2017-05-28] MEDS: MIRTAZAPINE 30 MG TABLET (FP) PO SCH (21:09)
[2017-05-29] MEDS ORDERED: METHADONE HCL 10 MG TABLET ONE (03:42)
[2017-05-29] MEDS ORDERED: METHADONE HCL 40 MG DISPERSABLE TABLET ONE (03:42)
[2017-05-29] MEDS: METHADONE 80 MG, METHADONE 10 MG PO SCH (06:27)
[2017-05-29] MEDS: CLOTRIMAZOLE/BETAMET DIPROP 15 GM TUBE TP SCH ×2 (10:06→21:13)
[2017-05-29] MEDS: PRENATAL VITAMINS W/ FOLIC ACID TABLET (FP) PO SCH (10:06)
[2017-05-29] MEDS: THIAMINE HCL 100 MG TABLET (FP) PO SCH (21:13)
[2017-05-29] MEDS: MIRTAZAPINE 30 MG TABLET (FP) PO SCH (21:13)
[2017-05-29] MEDS: hydrOXYzine PAMOATE 50 MG CAPSULE (FP) PO PRN (21:13)
[2017-05-30] MEDS ORDERED: METHADONE HCL 40 MG DISPERSABLE TABLET ONE (06:31)
[2017-05-30] MEDS: METHADONE 80 MG, METHADONE 10 MG PO SCH (06:31)
[2017-05-30] MEDS ORDERED: METHADONE HCL 10 MG TABLET ONE (06:31)
[2017-05-30] MEDS: PRENATAL VITAMINS W/ FOLIC ACID TABLET (FP) PO SCH (10:16)
[2017-05-30] MEDS: CLOTRIMAZOLE/BETAMET DIPROP 15 GM TUBE TP SCH ×2 (10:16→21:30)
[2017-05-30] MEDS: hydrOXYzine PAMOATE 50 MG CAPSULE (FP) PO PRN (21:29)
[2017-05-30] MEDS: MIRTAZAPINE 30 MG TABLET (FP) PO SCH (21:29)
[2017-05-30] MEDS: THIAMINE HCL 100 MG TABLET (FP) PO SCH (21:29)
[2017-05-31] MEDS ORDERED: METHADONE HCL 10 MG TABLET ONE (03:12)
[2017-05-31] MEDS ORDERED: METHADONE HCL 40 MG DISPERSABLE TABLET ONE (03:13)
[2017-05-31] MEDS: METHADONE 80 MG, METHADONE 10 MG PO SCH (06:08)
[2017-05-31] MEDS: PRENATAL VITAMINS W/ FOLIC ACID TABLET (FP) PO SCH (09:53)
[2017-05-31] MEDS: CLOTRIMAZOLE/BETAMET DIPROP 15 GM TUBE TP SCH ×2 (09:54→21:08)
[2017-05-31] MEDS: hydrOXYzine PAMOATE 50 MG CAPSULE (FP) PO PRN ×2 (12:48→21:08)
--- NOTE | 2017-05-31 14:07 | PN ---
Psychiatric Progress Note Vital Signs: Vital Signs Period Temp Pulse Resp BP Sys/Meredith Pulse Ox Last 24 Hr 97.6 F 71 16-18 129/89 Date of Session: 05/31/17 Chief Complaint:: Discharge Note HPI: Patient addressing Alcohol, Cocaine and Sedative Dependence comorbid with Opoid Dependence on Agonist Therapy, Nicotine Dependence and Substance-Induced Mood Disorder ROS: Asthma, GERD Current Medications: Active Medications Generic Name Dose Route Start Last Admin Trade Name Freq PRN Reason Stop Dose Admin Acetaminophen 650 mg 05/19/17 12:19 05/20/17 22:14 Tylenol - PO 650 mg Q4H PRN Administration FEVER Al Hydroxide/Mg Hydroxide 30 ml 05/19/17 12:19 Mylanta Oral Suspension - PO Q6H PRN DYSPEPSIA Albuterol Sulfate 2 puff 05/19/17 12:21 Ventolin Hfa Inhaler - IH Q4H PRN SHORT OF BREATH/WHEEZING Clotrimazole 1 applic 05/20/17 13:45 05/31/17 09:54 Lotrisone Cream (Small Tube) TP Not Given BID ION Colloidal Oatmeal 1 applic 05/20/17 13:34 Aveeno Soap - TP DAILY PRN HYGEINE Eucalyptus/Menthol/Phenol/Sorbitol 1 each 05/19/17 12:19 Cepastat Lozenge - MM Q4H PRN SORE THROAT Guaifenesin 10 ml 05/19/17 12:19 Robitussin Dm - PO Q6H PRN COUGH Hydroxyzine Pamoate 50 mg 05/19/17 12:19 05/31/17 12:48 Vistaril - PO 50 mg Q4H PRN Administration AGITATION Ibuprofen 400 mg 05/19/17 12:19 Motrin - PO Q6H PRN Pain Level 4-6 Loperamide HCl 4 mg 05/19/17 12:19 Imodium - PO Q6H PRN DIARRHEA Magnesium Citrate 300 ml 05/19/17 12:19 Citroma - PO Q48H PRN CONSTIPATION Magnesium Hydroxide 30 ml 05/19/17 12:19 Milk Of Magnesia - PO DAILY PRN CONSTIPATION Methadone HCl 80 mg/ Methadone 90 mg 05/30/17 06:00 05/31/17 06:08 HCl 10 mg PO 06/05/17 05:59 90 mg DAILY@0600 ION Administration Mirtazapine 30 mg 05/19/17 22:00 05/30/17 21:29 Remeron - PO 30 mg HS ION Administration Multivit/Folic Acid/Iron 1 tab 05/20/17 10:00 05/31/17 09:53 Vitamins (Sjr) - PO 1 tab DAILY ION Administration Pseudoephedrine/Triprolidine 1 combo 05/19/17 12:19 Actifed - PO TID PRN NASAL CONGESTION Thiamine HCl 100 mg 05/19/17 22:00 05/30/17 21:29 Vitamin B1 - PO 100 mg HS ION Administration Current Side Effect: No Lab tests ordered: Yes Lab tests reviewed: Yes Provider note:: Patient will complete this program on 06/02/17.He has met his treatment goals and will continue to address his issues in outpatient treatment at [facility]. Told content writer that his participation in this program has reinforced the things he knew about abstinence. He responded well to Remeron 30 mg po HS. Script for 30 days supply of medication will be electronically transmitted to [facility] at [address] [place] [address]. He is stable for discharge on 06/02/17 Total face to face time:: 35 Mental Status Exam - Mental Status Exam Alert and Oriented to: Time, Place, Person Cognitive Function: Fair Patient Appearance: Well Groomed Mood: Hopeful, Euthymic Affect: Appropriate Patient Behavior: Cooperative Speech Pattern: Clear Voice Loudness: Normal Thought Process: Intact, Goal Oriented Thought Disorder: Not Present Hallucinations: Denies Suicidal Ideation: Denies Homicidal Ideation: Denies Insight/Judgement: Fair Sleep: Fair Appetite: Good Muscle strength/Tone: Normal Gait/Station: Normal Psychiatric Treatment Plan - Problem List (1) Alcohol dependence Current Visit: Yes (2) Cocaine dependence Current Visit: Yes (3) Sedative hypnotic or anxiolytic dependence Current Visit: Yes (4) Opioid dependence on agonist therapy Current Visit: Yes (5) Nicotine dependence Current Visit: Yes (6) GERD (gastroesophageal reflux disease) Current Visit: Yes Qualifiers: (7) Asthma Current Visit: No Qualifiers: Asthma severity: mild Asthma persistence: intermittent Asthma complication type: unspecified Qualified Code(s): J45.20 - Mild intermittent asthma, uncomplicated Initial treatment plan: Patient will be discharged tomorrow and referred to [facility] for outpatient treatment
[2017-05-31] MEDS: MIRTAZAPINE 30 MG TABLET (FP) PO SCH (21:08)
[2017-05-31] MEDS: THIAMINE HCL 100 MG TABLET (FP) PO SCH (21:08)
[2017-06-01] MEDS ORDERED: METHADONE HCL 40 MG DISPERSABLE TABLET ONE (04:25)
[2017-06-01] MEDS ORDERED: METHADONE HCL 10 MG TABLET ONE (04:25)
[2017-06-01] MEDS: METHADONE 80 MG, METHADONE 10 MG PO SCH (06:16)
[2017-06-01 07:09] VITALS: BP 114/69; PULSE 69; TEMP 97.9
[2017-06-01] MEDS: hydrOXYzine PAMOATE 50 MG CAPSULE (FP) PO PRN (08:59)
== END 2017-06-01 09:50 | disposition home or self-care (01) | DRG 772 ==
LOC: YASAS 11:16 → Y3W 11:17
PROVIDERS: ADMIT Psychiatry & Neurology Psychiatry; ATTEND Psychiatry & Neurology Psychiatry
PROC: HZ42ZZZ Group Counseling for Substance Abuse Treatment, Cognitive-Behavioral (ICD-10-PCS; principal; 2017-05-19)
DX: F10.20 Alcohol dependence, uncomplicated (principal); F11.20 Opioid dependence, uncomplicated; F13.20 Sedative, hypnotic or anxiolytic dependence, uncomplicated; F14.20 Cocaine dependence, uncomplicated; F17.210 Nicotine dependence, cigarettes, uncomplicated; F19.24 Other psychoactive substance dependence with psychoactive substance-induced mood disorder; K21.9 Gastro-esophageal reflux disease without esophagitis; J45.20 Mild intermittent asthma, uncomplicated; Z91.013 Allergy to seafood; Z86.69 Personal history of other diseases of the nervous system and sense organs; Z59.0 Homelessness